=== PATIENT | male | born 1965 | race Caucasian/White ===

== ENCOUNTER 2018-05-25 09:54 | Outpatient (RCR) | payer OTHER, SELFPAY ==
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
== END 2018-05-25 19:00 | disposition home or self-care (01) ==
LOC: OT 09:54
DX: S46.811D Strain of other muscles, fascia and tendons at shoulder and upper arm level, right arm, subsequent encounter (principal); S46.011D Strain of muscle(s) and tendon(s) of the rotator cuff of right shoulder, subsequent encounter; M75.41 Impingement syndrome of right shoulder; M75.21 Bicipital tendinitis, right shoulder
CPT/HCPCS: 97165; 97166

== ENCOUNTER 2020-10-31 08:34 | Outpatient (RCR) | payer OTHER, SELFPAY ==
[2020-10-31 08:54] VITALS: BP 159/87; PULSE 63; RESP 16; TEMP 36.3; BMI 25.2
--- NOTE | 2020-10-31 11:12 | PCM.WC.HP ---
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 Now it is open macerated positive depth. Seen at urgent care and put on doxycycline and sent to wound center. Patient had history of edema lower extremities and his already had ultrasounds and arterial brachial studies done that shows no problems. Past Medical History Past Medical History: Left heel diabetic ulcer Allergies/Adverse Reactions: Allergies Penicillins [PCN] Allergy (Verified 10/31/20 09:16) PT UNSURE OF REACTION PT STATES HE WAS TOLD IN CHILDHOOD NOT TO TAKE PCN, BECAUSE HE WAS ALLERGIC Home Medications: Ambulatory Orders Medication Instructions Recorded Aspirin 81 mg PO DAILY 10/31/20 Atorvastatin Calcium 40 mg PO QHS 10/31/20 Bupropion HCl [Wellbutrin Sr] 100 mg PO BID 10/31/20 Cholecalciferol (Vitamin D3) 100,000 unit PO MOFR 10/31/20 [Vitamin D3] Doxycycline Hyclate 100 mg PO BID 10/31/20 Famotidine 20 mg PO BID 10/31/20 Insulin Detemir [Levemir Flextouch] 10 unit SQ DAILY 10/31/20 Insulin NPH Hum/Reg Insulin Hm 10 unit SQ BID 10/31/20 [Novolin 70-30 Flexpen] Lisinopril 5 mg PO DAILY 10/31/20 metFORMIN (XR) [Glucophage Xr] 500 mg PO DAILY 10/31/20 Review of Systems Constitutional: Denies: Chills, Fever Eyes: Denies: Blurred vision, Drainage, Pain HEENT: Denies: Difficulty Hearing, Difficulty Swallowing, Sore Throat, Visual Changes Cardiovascular: Denies: Chest Pain, Palpitations, Syncope Respiratory: Denies: Cough, Shortness of Breath Gastrointestinal: Denies: Abdominal Pain, Nausea, Vomiting Genitourinary: Denies: Dysuria, Frequency Musculoskeletal: Denies: Joint Pain, Muscle pain Skin: Reports: - - Ulcer left heel. Denies: Jaundice, Rash Neurological: Denies: Balance problems, Change in Speech, Difficulty swallowing, Focal weakness Psychiatric: Denies: Anxiety, Depression Endocrine: Denies: Change in Body Habitus Hematologic/ Lymphatic: Denies: Adenopathy - Physical Exam Vital Signs Temp Pulse Resp BP 97.3 F L 63 16 159/87 H 10/31/20 08:54 10/31/20 08:54 10/31/20 08:54 10/31/20 08:54 General: Oriented x3, Cooperative, Well developed HEENT: Atraumatic, PERRLA Oral: Moist Mucosa Neck: Supple, No JVD Lungs: Clear to auscultation, Normal air movement Cardiovascular: Regular rate, Regular Rhythm Abdomen: Bowel Sounds Present, Soft, Non Tender, No Hepato-splenomegaly Extremities: No clubbing, No edema Skin: Ulcer/ Wound - Diabetic foot ulcer left heel open macerated edge with slough in the center Wound Measurements and Assessment WC - Nurse 1 - General Ulcer Measurement Start: 10/31/20 08:52 Freq: Status: Active Protocol: Activity Type Activity Date Activity User E-Sign Co-Sign Detail Recorded Client Recorded Date Recorded By Document 10/31/20 08:54 [facility] [id number] 10/31/20 09:09 [facility] 10/31/20 08:54 Wound Center Nurse 1 [Ulcer Assessment] #1- L HEEL -Combined with other wound No -Current Size (cm) - Length 1.2 -Current Size (cm) - Width 3.5 -Current Size (cm) - Depth 0.1 -Total Square Cm 4.20 -Date of Last Picture (Recall this 10/31/20 field) -Photo Taken Yes -Epithelialization None Present -Tunneling No -Undermining/Tunneling No -Circular Undermining No -Exudate Amt Small -Exudate Type Serosanguineous -Wound Margin Distinct, Outline Attached -Granulation Amt Small (1-33%) -Granulation Quality [place] -Slough/Fibrin Yes -Necrosis Amt Large (67-100%) -Necrotic Tissue Type Adherent Slough -Texture (Katelynn-wound Skin Appearance) Assessed -Moisture (Katelynn-wound Skin Appearance Assessed ) -Color (Katelynn-wound Skin Appearance) Assessed, Erythema -Temperature (Katelynn-wound Skin No Abnormality Appearance) (Pt Warm) -Tenderness on Palpation (Katelynn-wound No Skin Appearance) -Ulcer Cleansing SOAPY WATER -Foul Odor after Cleansing No -Anesthetic Used 4% Lidocaine Solution [Edema Assessment] -Right Calf (cm) 31.6 -Right Ankle (cm) 21.6 -Left Calf (cm) 34.3 -Left Ankle (cm) 21.9 WC - Nurse 2 - General Ulcer CM Notes Start: 10/31/20 08:52 Freq: Status: Active Protocol: Activity Type Activity Date Activity User E-Sign Co-Sign Detail Recorded Client Recorded Date Recorded By Document 10/31/20 09:34 MW [id number] 10/31/20 09:47 MW 10/31/20 09:34 Wound Center Nurse 2 [Procedure/Treatment] #1- L HEEL -Time 09:34 -Correct Patient Yes -Correct Side, Site, Position Yes -Correct Procedure Yes -Procedure Performed Yes -Type of Procedure Debridement -Clinical Debridement Subcutaneous -Tissue Removed Subcutaneous -Post Debridement (cm) - Length 1.0 -Post Debridement (cm) - Width 3.5 -Post Debridement (cm) - Depth 0.2 -Total Square (Post) (cm) 3.50 -Area of Debridement (cm) - Length 1.0 -Area of Debridement (cm) - Width 3.5 -Total Square (Area) (cm) 3.50 -Tunneling No -Undermining/Tunneling No -Circular Undermining No -Wound/Ulcer Outcome Not Healed -Ulcer Cleansing Rinsed/ Irrigated with Saline -Foul Odor after Cleansing No -Bioengineered Tissue No -Bleeding Controlled with Pressure -Offloading No -Treatment Response Procedure Tolerated Well -Debridement - Subq, 1st 20sq cm Yes [See Physician Procedure note for Specifics] Pain Scale: 0-10 Numeric [Pain] -Is Patient Pain Free? Yes MIREYA - Nurse 3 - General Ulcer D/C NN Start: 10/31/20 08:52 Freq: Status: Active Protocol: Activity Type Activity Date Activity User E-Sign Co-Sign Detail Recorded Client Recorded Date Recorded By Document 10/31/20 10:15 [facility] [id number] 10/31/20 10:16 [facility] 10/31/20 10:15 Wound Care Nurse 3 [Wound Dressing] #1- L HEEL -Ulcer Cleansing Rinsed/ Irrigated with Saline -Foul Odor after Cleansing No -Primary Dressing Applied Aquacel Extra -Primary Dressing Covered/Secured Dry Gauze, with Secured with Tape -Aquacel Extra 1 [Compression Applied] Left -Tubular Bandage Double Layer -Size of Tubigrip Used Size D -Size D ($) 2 [Post Procedure Tolerated] -Treatment Response Procedure Tolerated Well Pain Scale: 0-10 Numeric [Pain] -Is Patient Pain Free? Yes WC - Visit Discharge [Visit Discharge Information] -Discharge Condition Stable -Ambulatory Status Ambulatory -Transportation Private Auto -Accompanied by GIRLFRIEND Musculoskeletal: No Tenderness to Palpation of Joints or Extremities Lymphatic: No Cervical, Supraclavicular, or Inguinal Adenopathy Neurological: Cranial nerves II-XII grossly intact, Neuro grossly intact Psych/Mental Status: Normal Affect, Appropriate Debridement Note Post-Debridement Measurements/Treatment WC - Nurse 2 - General Ulcer CM Notes Start: 10/31/20 08:52 Freq: Status: Active Protocol: Activity Type Activity Date Activity User E-Sign Co-Sign Detail Recorded Client Recorded Date Recorded By Document 10/31/20 09:34 MW [id number] 10/31/20 09:47 MW 10/31/20 09:34 Wound Center Nurse 2 #1- L HEEL -Time 09:34 -Correct Patient Yes -Correct Side, Site, Position Yes -Correct Procedure Yes -Procedure Performed Yes -Type of Procedure Debridement -Clinical Debridement Subcutaneous -Tissue Removed Subcutaneous -Post Debridement (cm) - Length 1.0 -Post Debridement (cm) - Width 3.5 -Post Debridement (cm) - Depth 0.2 -Total Square (Post) (cm) 3.50 -Area of Debridement (cm) - Length 1.0 -Area of Debridement (cm) - Width 3.5 -Total Square (Area) (cm) 3.50 -Tunneling No -Undermining/Tunneling No -Circular Undermining No -Wound/Ulcer Outcome Not Healed -Ulcer Cleansing Rinsed/ Irrigated with Saline -Foul Odor after Cleansing No -Bioengineered Tissue No -Bleeding Controlled with Pressure -Offloading No -Treatment Response Procedure Tolerated Well -Debridement - Subq, 1st 20sq cm Yes Pain Scale: 0-10 Numeric Is Patient Pain Free? Yes - Nurse 3 - General Ulcer D/C NN Start: 10/31/20 08:52 Freq: Status: Active Protocol: Activity Type Activity Date Activity User E-Sign Co-Sign Detail Recorded Client Recorded Date Recorded By Document 10/31/20 10:15 [facility] [id number] 10/31/20 10:16 [facility] 10/31/20 10:15 Wound Care Nurse 3 #1- L HEEL -Ulcer Cleansing Rinsed/ Irrigated with Saline -Foul Odor after Cleansing No -Primary Dressing Applied Aquacel Extra -Primary Dressing Covered/Secured with Dry Gauze, Secured with Tape -Aquacel Extra 1 Left -Tubular Bandage Double Layer -Size of Tubigrip Used Size D -Size D ($) 2 Treatment Response Procedure Tolerated Well Pain Scale: 0-10 Numeric Is Patient Pain Free? Yes WC - Visit Discharge Discharge Condition Stable Ambulatory Status Ambulatory Transportation Private Auto Accompanied by GIRLFRIEND Wound debrided: Left DFU heel Type of Debridement: Excisional debridement Anesthesia Used: 5% Lidocaine Gel Depth: Down to and including healthy tissue, in the subcutaneous layer Percentage of wound debrided: 100 Instrument Used: 7mm curette, #15 blade, Forceps, - - Nippers Tissue Removed: Devitalized tissue and slough Severity: Fat Layer Exposed Amount of bleeding with debridement: Mild Bleeding Controlled with: Pressure, Compression and gauze Patient tolerated procedure well Assessment/Plan Active Problems Diabetic ulcer of heel (Acute) Edema of lower extremity (Acute) Diabetes mellitus type 1, controlled, insulin dependent (Acute) Assessment: Diabetic foot ulcer left heel. Edema on lower extremities. Diabetes controlled with insulin Plan: Wash foot with Hibiclens or antibacterial soap. Apply Aquacel extra to wound base with Adaptic over top. Gauze and pad offload by wearing crocs while driving. Double layer Tubigrip to the left leg. Follow-up in 1 week
== END 2020-11-01 23:59 ==
LOC: WC 08:34
PROVIDERS: PCP Internal Medicine; Visit Provider Nurse Practitioner
DX: E10.621 Type 1 diabetes mellitus with foot ulcer (principal); R60.0 Localized edema; L97.422 Non-pressure chronic ulcer of left heel and midfoot with fat layer exposed; Z79.899 Other long term (current) drug therapy; Z79.82 Long term (current) use of aspirin; Z79.4 Long term (current) use of insulin
CPT/HCPCS: 11042; 87070; 87075; 87077; 87186; 87205; 99203; G0463

== ENCOUNTER 2020-11-20 08:30 | Outpatient (RCR) | payer OTHER, SELFPAY ==
[2020-11-02 00:42] VITALS: BP 159/87; PULSE 63; RESP 16; TEMP 36.3
[2020-11-13 08:40] VITALS: RESP 18; TEMP 35.7; BMI 25.2
--- NOTE | 2020-11-13 09:16 | PN.PCM_ITS ---
(1) Kidney disease, chronic, stage III (GFR 30-59 ml/min) Status: Chronic Code(s): N18.30 - Chronic kidney disease, stage 3 unspecified (2) Diabetes mellitus type 1, controlled, insulin dependent Status: Acute Code(s): E10.9 - Type 1 diabetes mellitus without complications (3) Diabetic ulcer of heel Status: Acute Code(s): E11.621 - Type 2 diabetes mellitus with foot ulcer; L97.409 - Non-pressure chronic ulcer of unspecified heel and midfoot with unspecified severity (4) Edema of lower extremity Status: Acute Code(s): R60.0 - Localized edema Type of Wound Date of Service: 11/13/20 Chief Complaint: Follow-up left heel ulcer History of Wound: 55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 Now it is open macerated positive depth. Seen at urgent care and put on doxycycline and sent to wound center. Patient had history of edema lower extremities and his already had ultrasounds and arterial brachial studies done that shows no problems. 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 Patient is noted to be between stage III and IV kidney failure. Patient is also diabetic. Patient states that he has to limit his protein intake due to his kidneys. Patient relates that his kidney doctors not talking dialysis quite yet. Progress of Wound: Stable with signs of improvement based off last note Subjective: Patient seen and examined bedside. Patient denies any new pedal complaints. Patient denies any nausea, fever, and chest pain, shortness of breath, chills, cough, streaking, purulence, vomiting. - Physical Exam Vital Signs Temp Pulse Resp BP 96.3 F L 63 18 159/87 H 11/13/20 08:40 11/02/20 00:42 11/13/20 08:40 11/02/20 00:42 General: Alert, Oriented x3 HEENT: Atraumatic Extremities: No clubbing, No cyanosis, Capillary Refill Less than 3 Seconds, No Calf Tenderness, Diminished Peripheral Pulses, Edema Skin: Ulcer/ Wound - Left posterior heel. No malodor, erythema, purulence, probing to bone, streaking, or other signs of infection. Skin is atrophic and hairless. Granular base with serosanguineous drainage after debridement Wound Measurements and Assessment WC - Nurse 1 - General Ulcer Measurement Start: 11/13/20 08:40 Freq: Status: Active Protocol: Activity Type Activity Date Activity User E-Sign Co-Sign Detail Recorded Client Recorded Date Recorded By Document 11/13/20 08:40 DASHA [id number] 11/13/20 08:51 11/13/20 08:40 Wound Center Nurse 1 [Ulcer Assessment] #1- L HEEL -Combined with other wound No -Current Size (cm) - Length 0.9 -Current Size (cm) - Width 2.8 -Current Size (cm) - Depth 0.2 -Total Square Cm 2.52 -Photo Taken No -Epithelialization Small 1-33% -Tunneling No -Undermining/Tunneling No -Circular Undermining No -Exudate Amt Small -Exudate Type Serosanguineous -Wound Margin Flat & Intact -Granulation Amt Large (67-100%) -Granulation Quality Red -Slough/Fibrin Yes -Necrosis Amt Small (1-33%) -Necrotic Tissue Type Adherent Slough -Structure Exposed N/A -Texture (Katelynn-wound Skin Appearance) Assessed -Moisture (Katelynn-wound Skin Appearance Assessed ) -Color (Katelynn-wound Skin Appearance) Assessed -Temperature (Katelynn-wound Skin No Abnormality Appearance) (Pt Warm) -Tenderness on Palpation (Katelynn-wound No Skin Appearance) -Ulcer Cleansing Rinsed/ Irrigated with Saline -Foul Odor after Cleansing No -Anesthetic Used 4% Lidocaine Solution [Edema Assessment] -Lower Limb Edema Present NA - Nurse 2 - General Ulcer CM Notes Start: 11/13/20 08:40 Freq: Status: Active Protocol: Activity Type Activity Date Activity User E-Sign Co-Sign Detail Recorded Client Recorded Date Recorded By Document 11/13/20 09:06 JF [id number] 11/13/20 09:09 11/13/20 09:06 Wound Center Nurse 2 [Procedure/Treatment] #1- L HEEL -Time 09:07 -Correct Patient Yes -Correct Side, Site, Position Yes -Correct Procedure Yes -Procedure Performed Yes -Type of Procedure Debridement -Clinical Debridement Subcutaneous -Tissue Removed Subcutaneous -Post Debridement (cm) - Length 0.9 -Post Debridement (cm) - Width 2.9 -Post Debridement (cm) - Depth 0.3 -Total Square (Post) (cm) 2.61 -Area of Debridement (cm) - Length 0.9 -Area of Debridement (cm) - Width 2.9 -Total Square (Area) (cm) 2.61 -Tunneling No -Undermining/Tunneling No -Circular Undermining No -Wound/Ulcer Outcome Not Healed -Ulcer Cleansing Rinsed/ Irrigated with Saline -Foul Odor after Cleansing No -Bioengineered Tissue No -Bleeding Controlled with Pressure -Offloading No -Treatment Response Procedure Tolerated Well -Debridement - Subq, 1st 20sq cm Yes [See Physician Procedure note for Specifics] Pain Scale: 0-10 Numeric [Pain] -Is Patient Pain Free? Yes - Nurse 3 - General Ulcer D/C NN Start: 11/13/20 08:40 Freq: Status: Active Protocol: Activity Type Activity Date Activity User E-Sign Co-Sign Detail Recorded Client Recorded Date Recorded By Document 11/13/20 09:10 DASHA [id number] 11/13/20 09:11 DASHA 11/13/20 09:10 Wound Care Nurse 3 [Wound Dressing] #1- L HEEL -Ulcer Cleansing Rinsed/ Irrigated with Saline -Foul Odor after Cleansing No -Primary Dressing Applied Aquacel Extra -Primary Dressing Covered/Secured Dry Gauze, with Secured with Tape -Aquacel Extra 1 [Compression Applied] Left -Size of Tubigrip Used Size D Pain Scale: 0-10 Numeric [Pain] -Is Patient Pain Free? Yes - Visit Discharge [Visit Discharge Information] -Discharge Condition Stable -Ambulatory Status Ambulatory -Transportation Private Auto -Medication Reconcilliation completed Yes & provided to patient/care provider -Clinical Summary of Care Provided Yes Musculoskeletal: No Tenderness to Palpation of Joints or Extremities, Muscle Wasting Neurological: - - Lack of epicritic sensation consistent with neuropathy Psych/Mental Status: Normal Affect, Appropriate Debridement Note Post-Debridement Measurements/Treatment - Nurse 2 - General Ulcer CM Notes Start: 11/13/20 08:40 Freq: Status: Active Protocol: Activity Type Activity Date Activity User E-Sign Co-Sign Detail Recorded Client Recorded Date Recorded By Document 11/13/20 09:06 DASHA [id number] 11/13/20 09:09 DASHA 11/13/20 09:06 Wound Center Nurse 2 #1- L HEEL -Time 09:07 -Correct Patient Yes -Correct Side, Site, Position Yes -Correct Procedure Yes -Procedure Performed Yes -Type of Procedure Debridement -Clinical Debridement Subcutaneous -Tissue Removed Subcutaneous -Post Debridement (cm) - Length 0.9 -Post Debridement (cm) - Width 2.9 -Post Debridement (cm) - Depth 0.3 -Total Square (Post) (cm) 2.61 -Area of Debridement (cm) - Length 0.9 -Area of Debridement (cm) - Width 2.9 -Total Square (Area) (cm) 2.61 -Tunneling No -Undermining/Tunneling No -Circular Undermining No -Wound/Ulcer Outcome Not Healed -Ulcer Cleansing Rinsed/ Irrigated with Saline -Foul Odor after Cleansing No -Bioengineered Tissue No -Bleeding Controlled with Pressure -Offloading No -Treatment Response Procedure Tolerated Well -Debridement - Subq, 1st 20sq cm Yes Pain Scale: 0-10 Numeric Is Patient Pain Free? Yes - Nurse 3 - General Ulcer D/C NN Start: 11/13/20 08:40 Freq: Status: Active Protocol: Activity Type Activity Date Activity User E-Sign Co-Sign Detail Recorded Client Recorded Date Recorded By Document 11/13/20 09:10 DASHA [id number] 11/13/20 09:11 DASHA 11/13/20 09:10 Wound Care Nurse 3 #1- L HEEL -Ulcer Cleansing Rinsed/ Irrigated with Saline -Foul Odor after Cleansing No -Primary Dressing Applied Aquacel Extra -Primary Dressing Covered/Secured with Dry Gauze, Secured with Tape -Aquacel Extra 1 Left -Size of Tubigrip Used Size D Pain Scale: 0-10 Numeric Is Patient Pain Free? Yes - Visit Discharge Discharge Condition Stable Ambulatory Status Ambulatory Transportation Private Auto Medication Reconcilliation completed & Yes provided to patient/care provider Clinical Summary of Care Provided Yes Wound debrided: Posterior heel Laterality: Left Wound Grade/Stage: [place] 1 Type of Debridement: Excisional debridement Anesthesia Used: 4% Lidocaine Solution Percentage of wound debrided: 100 Instrument Used: 5mm curette Tissue Removed: Tissue removed includes fibrous, devitalized, biofilm, and slough tissue Severity: Fat Layer Exposed Amount of bleeding with debridement: Mild Bleeding Controlled with: Pressure Patient tolerated procedure well Assessment/Plan Assessment: Diabetic foot ulcer left heel. Edema on lower extremities. Diabetes controlled with insulin. Chronic kidney disease stage III Plan: Wash foot with Hibiclens or antibacterial soap. Apply Aquacel extra to wound base with Adaptic over top. Gauze and pad offload by wearing crocs while driving. Double layer Tubigrip to the left leg. Wound noted to have decreased in size from last visitation. 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 As well as proper nutrition and blood sugar control to assist in wound healing. Discussed the importance of compression as well. Reviewed wound cultures with the patient and . Wound cultures demonstrated staph epididymis and Corynebacterium which are most likely skin becca contamination. Discussed that there is no active signs of infection to the wound base itself and discussed pros and cons of undergoing antibiotics. Decided with patient not to pursue antibiotic treatment at this time. Patient is to monitor and discussed what signs and symptoms to watch out for with patient and contact office if any of these appear. Follow-up in 1 week
[2020-11-20 08:32] VITALS: BP 137/69; PULSE 58; RESP 18; TEMP 36; BMI 25.2
--- NOTE | 2020-11-20 11:37 | PN.PCM_ITS ---
(1) Kidney disease, chronic, stage III (GFR 30-59 ml/min) Status: Chronic Code(s): N18.30 - Chronic kidney disease, stage 3 unspecified (2) Diabetes mellitus type 1, controlled, insulin dependent Status: Acute Code(s): E10.9 - Type 1 diabetes mellitus without complications (3) Diabetic ulcer of heel Status: Acute Code(s): E11.621 - Type 2 diabetes mellitus with foot ulcer; L97.409 - Non-pressure chronic ulcer of unspecified heel and midfoot with unspecified severity (4) Edema of lower extremity Status: Acute Code(s): R60.0 - Localized edema Type of Wound Date of Service: 11/20/20 Chief Complaint: Follow-up left heel ulcer History of Wound: 55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 Now it is open macerated positive depth. Seen at urgent care and put on doxycycline and sent to wound center. Patient had history of edema lower extremities and his already had ultrasounds and arterial brachial studies done that shows no problems. 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 Patient is noted to be between stage III and IV kidney failure. Patient is also diabetic. Patient states that he has to limit his protein intake due to his kidneys. Patient relates that his kidney doctors not talking dialysis quite yet. Wound cultures 10/31/20 demonstrated staph epididymis and Corynebacterium which are most likely skin becca contamination. 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 Patient denies any new pedal complaints. Patient denies nausea, fever, vomiting, chills, chest pain, shortness of breath, streaking, purulence - Physical Exam Vital Signs Temp Pulse Resp BP 96.8 F L 58 L 18 137/69 H 11/20/20 08:32 11/20/20 08:32 11/20/20 08:32 11/20/20 08:32 General: Alert, Oriented x3 HEENT: Atraumatic Extremities: No clubbing, No cyanosis, No edema, Capillary Refill Less than 3 Seconds, No Calf Tenderness, Peripheral Pulses Normal Skin: Ulcer/ Wound - posterior left heel. No malodor, erythema, purulence, probing to bone, streaking, or other signs of infection. Skin is atrophic and hairless. Granular base with serosanguineous drainage after debridement Wound Measurements and Assessment WC - Nurse 1 - General Ulcer Measurement Start: 11/13/20 08:40 Freq: Status: Active Protocol: Activity Type Activity Date Activity User E-Sign Co-Sign Detail Recorded Client Recorded Date Recorded By Document 11/20/20 08:32 DL [id number] 11/20/20 08:38 DL 11/20/20 08:32 Wound Center Nurse 1 [Ulcer Assessment] #1- L HEEL -Current Size (cm) - Length 0.8 -Current Size (cm) - Width 2.8 -Current Size (cm) - Depth 0.2 -Total Square Cm 2.24 -Photo Taken No -Exudate Amt Small -Exudate Type Serosanguineous -Wound Margin Distinct, Outline Attached -Granulation Amt Large (67-100%) -Granulation Quality Pale,[place] -Necrosis Amt Small (1-33%) -Necrotic Tissue Type Adherent Slough -Structure Exposed N/A -Texture (Katelynn-wound Skin Appearance) Scarring -Moisture (Katelynn-wound Skin Appearance No Abnormality ) -Color (Katelynn-wound Skin Appearance) No Abnormality -Temperature (Katelynn-wound Skin No Abnormality Appearance) (Pt Warm) -Tenderness on Palpation (Katelynn-wound No Skin Appearance) -Ulcer Cleansing Rinsed/ Irrigated with Saline -Foul Odor after Cleansing No -Anesthetic Used 4% Lidocaine Solution [Edema Assessment] -Left Calf (cm) 31.8 -Left Ankle (cm) 21 WC - Nurse 2 - General Ulcer CM Notes Start: 11/13/20 08:40 Freq: Status: Active Protocol: Activity Type Activity Date Activity User E-Sign Co-Sign Detail Recorded Client Recorded Date Recorded By Document 11/20/20 08:52 JF [id number] 11/20/20 08:55 JF 11/20/20 08:52 Wound Center Nurse 2 [Procedure/Treatment] #1- L HEEL -Time 08:52 -Correct Patient Yes -Correct Side, Site, Position Yes -Correct Procedure Yes -Procedure Performed Yes -Type of Procedure Debridement -Clinical Debridement Subcutaneous -Tissue Removed Subcutaneous -Post Debridement (cm) - Length 0.8 -Post Debridement (cm) - Width 3.0 -Post Debridement (cm) - Depth 0.2 -Total Square (Post) (cm) 2.40 -Area of Debridement (cm) - Length 0.8 -Area of Debridement (cm) - Width 3.0 -Total Square (Area) (cm) 2.40 -Tunneling No -Undermining/Tunneling No -Circular Undermining No -Wound/Ulcer Outcome Not Healed -Ulcer Cleansing Rinsed/ Irrigated with Saline -Foul Odor after Cleansing No -Bioengineered Tissue No -Bleeding Controlled with Pressure -Offloading No -Treatment Response Procedure Tolerated Well -Debridement - Subq, 1st 20sq cm Yes [See Physician Procedure note for Specifics] Pain Scale: 0-10 Numeric [Pain] -Is Patient Pain Free? Yes - Nurse 3 - General Ulcer D/C NN Start: 11/13/20 08:40 Freq: Status: Active Protocol: Activity Type Activity Date Activity User E-Sign Co-Sign Detail Recorded Client Recorded Date Recorded By Document 11/20/20 08:59 DASHA [id number] 11/20/20 09:00 11/20/20 08:59 Wound Care Nurse 3 [Wound Dressing] #1- L HEEL -Ulcer Cleansing Rinsed/ Irrigated with Saline -Foul Odor after Cleansing No -Primary Dressing Applied C Hydrogel ($), NonAdherent Contact Layer -Primary Dressing Covered/Secured Dry Gauze & with Roll Gauze, Secured with Tape Pain Scale: 0-10 Numeric [Pain] -Is Patient Pain Free? Yes - Visit Discharge [Visit Discharge Information] -Discharge Condition Stable -Ambulatory Status Ambulatory -Transportation Private Auto -Medication Reconcilliation completed Yes & provided to patient/care provider -Clinical Summary of Care Provided Yes Musculoskeletal: Tenderness Neurological: - - lack of epicritic sensation Psych/Mental Status: Normal Affect, Appropriate Debridement Note Post-Debridement Measurements/Treatment - Nurse 2 - General Ulcer CM Notes Start: 11/13/20 08:40 Freq: Status: Active Protocol: Activity Type Activity Date Activity User E-Sign Co-Sign Detail Recorded Client Recorded Date Recorded By Document 11/13/20 09:06 [id number] 11/13/20 09:09 Document 11/20/20 08:52 [id number] 11/20/20 08:55 11/13/20 11/20/20 09:06 08:52 Wound Center Nurse 2 #1- L HEEL -Time 09:07 08:52 -Correct Patient Yes Yes -Correct Side, Site, Position Yes Yes -Correct Procedure Yes Yes -Procedure Performed Yes Yes -Type of Procedure Debridement Debridement -Clinical Debridement Subcutaneous Subcutaneous -Tissue Removed Subcutaneous Subcutaneous -Post Debridement (cm) - Length 0.9 0.8 -Post Debridement (cm) - Width 2.9 3.0 -Post Debridement (cm) - Depth 0.3 0.2 -Total Square (Post) (cm) 2.61 2.40 -Area of Debridement (cm) - Length 0.9 0.8 -Area of Debridement (cm) - Width 2.9 3.0 -Total Square (Area) (cm) 2.61 2.40 -Tunneling No No -Undermining/Tunneling No No -Circular Undermining No No -Wound/Ulcer Outcome Not Healed Not Healed -Ulcer Cleansing Rinsed/ Rinsed/ Irrigated with Irrigated with Saline Saline -Foul Odor after Cleansing No No -Bioengineered Tissue No No -Bleeding Controlled with Pressure Pressure -Offloading No No -Treatment Response Procedure Procedure Tolerated Well Tolerated Well -Debridement - Subq, 1st 20sq cm Yes Yes Pain Scale: 0-10 Numeric Is Patient Pain Free? Yes Yes - Nurse 3 - General Ulcer D/C NN Start: 11/13/20 08:40 Freq: Status: Active Protocol: Activity Type Activity Date Activity User E-Sign Co-Sign Detail Recorded Client Recorded Date Recorded By Document 11/13/20 09:10 [id number] 11/13/20 09:11 Document 11/20/20 08:59 JF [id number] 11/20/20 09:00 11/13/20 11/20/20 09:10 08:59 Wound Care Nurse 3 #1- L HEEL -Ulcer Cleansing Rinsed/ Rinsed/ Irrigated with Irrigated with Saline Saline -Foul Odor after Cleansing No No -Primary Dressing Applied Aquacel Extra C Hydrogel ($), NonAdherent Contact Layer -Primary Dressing Covered/Secured with Dry Gauze, Dry Gauze & Secured with Roll Gauze, Tape Secured with Tape -Aquacel Extra 1 Left -Size of Tubigrip Used Size D Pain Scale: 0-10 Numeric Is Patient Pain Free? Yes Yes - Visit Discharge Discharge Condition Stable Stable Ambulatory Status Ambulatory Ambulatory Transportation Private Auto Private Auto Medication Reconcilliation completed & Yes Yes provided to patient/care provider Clinical Summary of Care Provided Yes Yes Wound debrided: posterior heel Laterality: Left Wound Grade/Stage: step[place] 2 Type of Debridement: Excisional debridement Anesthesia Used: 4% Lidocaine Solution Depth: in the subcutaneous layer Percentage of wound debrided: 100 Instrument Used: 5mm curette Tissue Removed: Tissue removed includes fibrous, devitalized, biofilm, and slough tissue Severity: Fat Layer Exposed Amount of bleeding with debridement: Mild Bleeding Controlled with: Pressure Patient tolerated procedure well Assessment/Plan Active Problems Diabetic ulcer of heel (Acute) Edema of lower extremity (Acute) Diabetes mellitus type 1, controlled, insulin dependent (Acute) Kidney disease, chronic, stage III (GFR 30-59 ml/min) (Chronic) Assessment: Diabetic foot ulcer left heel. Edema on lower extremities, improved mild. Diabetes controlled with insulin. Chronic kidney disease stage III Plan: Patient seen and examined. Wash foot with Hibiclens or antibacterial soap. Apply Aquacel extra to wound base with Adaptic over top. Gauze and pad offload by wearing crocs while driving. Double layer Tubigrip to the left leg. 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 As well as proper nutrition and blood sugar control to assist in wound healing. Discussed the importance of compression as well. Reviewed wound cultures with the patient and . Wound cultures demonstrated staph epididymis and Corynebacterium which are most likely skin becca contamination. Decided with patient not to pursue antibiotic treatment at this time. Patient is to monitor and discussed what signs and symptoms to watch out for with patient and contact office if any of these appear. Wrong supplies were sent to patient. Will contact company to fix. May consider advanced wound products if no progress made. Follow-up in 1 week
== END 2020-11-20 23:59 | disposition home or self-care (01) ==
LOC: WC 08:30
PROVIDERS: PCP Internal Medicine; Visit Provider Nurse Practitioner
DX: E10.621 Type 1 diabetes mellitus with foot ulcer (principal); N18.30 Chronic kidney disease, stage 3 unspecified; R60.0 Localized edema; L97.422 Non-pressure chronic ulcer of left heel and midfoot with fat layer exposed; E10.22 Type 1 diabetes mellitus with diabetic chronic kidney disease; Z79.4 Long term (current) use of insulin
CPT/HCPCS: 11042